=== PATIENT | female | born 1945 | race Caucasian/White ===

== ENCOUNTER 2018-02-15 09:11 | Inpatient (IN) | payer MEDICARE, BC ==
[~2018-02-15] VITALS: Ht 157.5 cm; Wt 110.2 kg
[2018-02-15] VITALS (9 sets, daily range): BP systolic 138–156; BP diastolic 67–107
[2018-02-15 09:57] LABS: ABSOLUTE BASOPHILS 0.1 thou/uL (0.0-0.2); ABSOLUTE EOSINOPHILS 0.3 thou/uL (0.0-0.7); ABSOLUTE LYMPHOCYTES 1.6 thou/uL (0.8-5.3); ABSOLUTE MONOCYTES 0.7 thou/uL (0.0-1.2); ABSOLUTE NEUTROPHILS 4.4 thou/uL (1.6-8.1); ANION GAP 10 mmol/L (7-16); BASOPHILS 0.7 %; BUN 24 mg/dL (7-18); CALCIUM 9.2 mg/dL (8.5-10.1); CHLORIDE 105 mmol/L (98-107); CO2 27 mmol/L (21-32); CREATININE 1.2 mg/dL (0.6-1.3); EOSINOPHILS 3.8 %; GLUCOSE 319 mg/dL (70-99); HEMATOCRIT 47.7 % (37.0-47.0); HEMOGLOBIN 15.7 gm/dL (12.0-15.0); LYMPHOCYTES 23.1 %; MCH 30.6 pg (26.0-34.0); MCV 92.7 fL (80.0-100.0); MPV 10.4 fl. (7.2-11.1); NUCLEATED RBCS 0 /100WBC; PLATELET COUNT* 200 thou/uL (150-400); POLYS 62.4 %; POTASSIUM 4.2 mmol/L (3.5-5.1); RBC 5.14 mil/uL (4.20-5.00); RDW-CV 14.3 % (10.5-14.5); SODIUM 142 mmol/L (136-145); WBC 7.1 thou/uL (4.0-11.0)
[2018-02-15 10:01] LABS: APTT 25.5 Seconds (25.0-31.3); INR 1.1; PROTIME 10.4 Seconds (9.20-11.50)
[2018-02-15 10:07] LABS: ALBUMIN 3.7 g/dL (3.4-5.0); ALKALINE PHOSPHATASE 76 U/L (46-116); LIPASE 180 U/L (73-393); NT-PRO BRAIN NAT PEPTIDE 1865 pg/mL (<300); SGOT 14 U/L (15-37); SGPT 28 U/L (30-65); TOTAL BILIRUBIN 0.9 mg/dL (<0.1-1.0); TOTAL PROTEIN 6.9 g/dL (6.4-8.2); TROPONIN-I LEVEL <0.06 ng/mL (<0.06)
[2018-02-15] MEDS ORDERED: ARIMIDEX PO (12:19)
[2018-02-15] MEDS ORDERED: LOTENSIN20 MG PO (12:19)
[2018-02-15] MEDS ORDERED: CALCIUM + D3 E1 EACH PO (12:20)
[2018-02-15] MEDS ORDERED: COLESTID1 GM PO (12:20)
[2018-02-15] MEDS ORDERED: ZOCOR20 MG PO (12:21)
[2018-02-15] MEDS ORDERED: EMPAGLIFLOZIN PO (12:21)
[2018-02-15] MEDS ORDERED: TOPROL XL100 MG PO (12:21)
[2018-02-15] MEDS ORDERED: AMARYL4 MG PO (12:21)
--- NOTE | 2018-02-15 16:04 | EKG ---
[place] [address] ELECTROCARDIOGRAM REPORT Name: ROBERT BUCHANAN Room: [address] IN [facility]#: [id number] Admission: 02/15/18 Attend Phys: Mónica Phan Discharge: Date of : 45 Report #: [id number] THIS REPORT FOR: //name// [facility] ED Test Date: 2018-02-15 Test Time: 09:20:03 Pat Name: ROBERT BUCHANAN Department: Room: Gender: Director Of Assessment: Ngoc FRANCIS : 1945 Requested By: Tiny Calvert Order Number: [id number] MD: David Olmedo Measurements Intervals [place] Rate: 138 P: DE: QRS: -45 QRSD: 131 T: 126 QT: 325 QTc: 493 Interpretive Statements Atrial fibrillation left axis Right bundle branch block LVH with IVCD and secondary repol abnrm Borderline prolonged QT interval No previous ECG available for comparison Electronically Signed On 02-15-2018 16:04:18 CDT by David Olmedo [email or web address] <ELECTRONICALLY SIGNED> By: David Olmedo MD, [facility] 02/15/18 1604 0920 0920 David Olmedo MD, [facility] /EPI
--- NOTE | 2018-02-15 16:05 | EKG ---
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: Ngoc FRANCIS : 1945 Requested By: Tiny Calvert Order Number: [id number] MD: David Olmedo Measurements Intervals [place] Rate: 124 P: -86 KS: 80 QRS: -47 QRSD: 132 T: 125 QT: 344 QTc: 494 Interpretive Statements atrial fibrillation RBBB left axis LVH with IVCD and secondary repol abnrm Borderline prolonged QT interval Electronically Signed On 02-15-2018 16:05:38 CDT by David Olmedo [email or web address] <ELECTRONICALLY SIGNED> By: David Olmedo MD, [facility] 02/15/18 1605 0955 0955 David Olmedo MD, [facility] /EPI
--- NOTE | 2018-02-15 16:29 | TEE ---
[place] [address] TRANSESOPHAGEAL ECHOCARDIOGRAM Name: RAMÓN BUCHANANE Katherine Room: [address] IN [facility]#: [id number] Admission: 02/15/18 Attend Phys: Carlos Eduardo Aleman Discharge: Date of : 45 Date of Service: 02/15/18 1629 Report #: [id number] THIS REPORT FOR: //name// APPROVED REPORT Study performed: 02/15/2018 15:39:07 EXAM: Transesophageal Echocardiogram BSA: 1.83 HR: 113 bpm BP: 96/44 mmHg Other Information Study Quality: Good Indications Atrial Fibrillation Echo Enhancing Agent Indication: Rule out Shunt Agent(s) / Amount(s) Used: Agitated Saline cc Procedure After obtaining informed consent, patient underwent transesophageal echo in the [employer] Orig[employer] Assistant [employer]. Type of Sedation : Conscious Sedation Sedation was administered by Christen Martinez RN. Sedation was achieved intravenously with: Versed (4) Fentanyl (75) Transesophageal probe was inserted and advanced into esophagus without difficulty by David Olmedo MD, FACC. Echo enhancement indication: R/O Septal defect. Echo enhancement agent administered: Agitated Saline The MARVIN was performed without complications. Synchronized Cardioversion attempted: Successful Synchronized Cardioversion acheived with 300 Joules after one attempt(s). Rhythm following Synchronized Cardioversion: Sinus Bradycardia Throughout the procedure, the blood pressure, pulse oximetry, cardiac rhythm, and rate were monitored. The patient tolerated the procedure without adverse effects. Recovery from conscious sedation was uneventful and vital signs were stable. Left Ventricle [place] [id number] TRANSESOPHAGEAL ECHOCARDIOGRAM Name: DEWAYNEROBERT Katherine Room: [address]#: [id number] Admission: 02/15/18 Attend Phys: Carlos Eduardo Aleman Discharge: Date of : 45 Date of Service: 02/15/18 1629 Report #: [id number] The left ventricle is normal size. There is normal LV segmental wall motion. There is normal left ventricular wall thickness. Left ventricular systolic function is normal. The left ventricular ejection fraction is within the normal range. LVEF is 55-60%. Right Ventricle The right ventricle is normal size. The right ventricular systolic function is normal. Atria Left atrium is mildly dilated. no thrombus noted in the left atrial appendage Injection of bubbles documented no interatrial shunt. The right atrium size is normal. Aortic Valve The aortic valve is normal in structure. No aortic regurgitation is present. There is no aortic valvular stenosis. Mitral Valve The mitral valve is normal in structure. Trace mitral regurgitation. No evidence of mitral valve stenosis. Tricuspid Valve The tricuspid valve is normal in structure. Trace tricuspid regurgitation. Pulmonic Valve The pulmonary valve is normal in structure. There is no pulmonic valvular regurgitation. Great Vessels The aortic root is normal in size. Pericardium There is no pericardial effusion. <Conclusion> LVEF is 55-60%. Left atrium is mildly dilated. no thrombus noted in the left atrial appendage Injection of bubbles documented no interatrial shunt. successful cardioversion of atrial fibrillation to sinus bradycardia <ELECTRONICALLY SIGNED> By: David Olmedo MD, FACC 02/15/18 1629 1629 1629 David Olmedo MD, FACC /INF
[2018-02-16 04:41] LABS: HEMATOCRIT 46.4 % (37.0-47.0); HEMOGLOBIN 15.7 gm/dL (12.0-15.0); MCH 31.1 pg (26.0-34.0); MCHC 33.8 g/dL (28.0-37.0); MCV 92.1 fL (80.0-100.0); MPV 10.4 fl. (7.2-11.1); RBC 5.04 mil/uL (4.20-5.00); RDW-CV 14.4 % (10.5-14.5); WBC 7.7 thou/uL (4.0-11.0)
[2018-02-16 04:46] VITALS: BP 150/97
[2018-02-16 05:17] LABS: ALBUMIN 3.5 g/dL (3.4-5.0); CALCIUM 9.2 mg/dL (8.5-10.1); CREATININE 0.9 mg/dL (0.6-1.3); POTASSIUM 4.1 mmol/L (3.5-5.1); TOTAL PROTEIN 6.6 g/dL (6.4-8.2)
[2018-02-16 07:44] VITALS: BP 157/94
--- NOTE | 2018-02-16 08:57 | CON ---
[facility] [address] [place] [address] CONSULTATION Name: ROBERT BUCHANAN Room: [address] IN .R.#: [id number] Admission: 02/15/18 Attend Phys: Mónica Phan Discharge: Date of : 45 Report #: [id number] THIS REPORT FOR: //name// CC: Jackie Aleman DATE OF SERVICE: 02/15/2018 TYPE OF REPORT: Cardiology consultation. PRIMARY CARE PHYSICIAN: Jackie Andres M.D. HISTORY OF PRESENT ILLNESS: The patient is a 73-year-old single white female who was admitted with atrial fibrillation. The patient has no previous history of heart disease. She apparently did have a stress test years ago. She notes she did go on a bus ride several weeks ago and since then has had some swelling of her ankles. She had a routine physical this morning. When she went to the office, she was found to be in atrial fibrillation. She was sent over to the Emergency Room and admitted for further evaluation and treatment. She is placed on IV Cardizem and the rate is slowed. She actually denied any recent chest pain, shortness of breath, feeling of an irregular heartbeat, lightheadedness and syncope. She does not exercise on a regular basis. She has had no recent fever or bleeding. PAST MEDICAL HISTORY: Otherwise significant for removal of a neuroma from her foot, meniscus repair of her knee and cholecystectomy. She had breast cancer years ago with mastectomy followed by radiation therapy. She has a history of hypertension, diabetes and hyperlipidemia. MEDICATIONS: Include metoprolol, glyburide, Jardiance and simvastatin. ALLERGIES: She has an allergy to SULFA DRUGS. FAMILY HISTORY: Her mother had congestive heart failure. SOCIAL HISTORY: She is , lives in [facility]. She is not working at this time. No smoking or alcohol abuse. REVIEW OF SYSTEMS: She has had no history of stroke, asthma, peptic ulcer disease, liver disease, kidney disease, psychiatric illness or chronic skin condition. PHYSICAL EXAMINATION: GENERAL: Revealed an elderly female who appeared in no distress. VITAL SIGNS: She had a blood pressure of 130/70, pulse is initially 140 [place] [address] CONSULTATION Name: ROBERT BUCHANAN Room: [address] IN [facility]#: [id number] Admission: 02/15/18 Attend Phys: Mónica Phan Discharge: Date of : 45 Report #: [id number] is now 100 and she was afebrile. HEENT: She is anicteric. Conjunctivae pink. Mucous membranes moist. NECK: Veins nondistended. No carotid bruits. Neck supple. CHEST: Clear to auscultation. CARDIOVASCULAR: Irregular rhythm. No significant murmur. ABDOMEN: Obese, soft and nontender. EXTREMITIES: Had trace pedal edema. Dorsalis pedis pulse cannot be palpated. SKIN: Cool and dry. NEUROLOGICAL: Nonfocal. LYMPHATIC: No adenopathy. MUSCULOSKELETAL: No joint effusion. RADIOLOGICAL DATA: Her ECG on admission this morning showed atrial fibrillation, rapid ventricular response rate, left ventricular hypertrophy, repolarization changes and left axis deviation. Workup in the Emergency Room today, she had portable chest x-ray that showed cardiomegaly and no pulmonary infiltrates. Venous duplex scan of her legs showed no DVT. VQ scan of her lungs was low probability for pulmonary embolus. LABORATORY DATA: Sodium 142, BUN 24, creatinine 1.2 and glucose is 319. Troponins 0.06. BNP . White blood cell count 7.1 and hemoglobin 15.7. IMPRESSION AND RECOMMENDATIONS: 1. Atrial fibrillation. Onset unclear. The patient was basically asymptomatic when she went to see her doctor today. I would recommend an echocardiogram to look for structural heart disease. I would check thyroid function studies. I would recommend anticoagulation. If patient fails to convert, I would consider cardioversion and antiarrhythmic therapy. 2. Hypertension. The patient has been on a beta bhargav. 3. Hyperlipidemia. The patient is on a statin drug. 4. Diabetes. 5. History of breast cancer. 6. Sleep apnea. The patient on continuous positive airway pressure. <ELECTRONICALLY SIGNED> By: David Olmedo MD, FACC 02/16/18 0857 1410 [id number] Olmedo MD, FACC /nt
--- NOTE | 2018-02-16 10:54 | EKG ---
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: : 1945 Requested By: David Olmedo Order Number: [id number] Dinah MD: David Olmedo Measurements Intervals [place] Rate: 63 P: 32 MS: 185 QRS: -40 QRSD: 139 T: 31 QT: 495 QTc: 507 Interpretive Statements Sinus rhythm early transition Nonspecific IVCD with LAD Left ventricular hypertrophy Compared to ECG 02/15/2018 09:55:31 Atrial fibrillation no longer present Electronically Signed On 02-16-2018 10:54:37 CDT by David Olmedo [email or web address] <ELECTRONICALLY SIGNED> By: David Olmedo MD, [facility] 02/16/18 1054 0805 08 David Olmedo MD, [facility] /EPI
[2018-02-16 11:35] VITALS: BP 158/80
[2018-02-16 16:25] VITALS: BP 124/103
[2018-02-16 20:00] VITALS: BP 144/85
[2018-02-16 23:42] VITALS: BP 151/92
[2018-02-17 04:36] VITALS: BP 117/77
[2018-02-17 04:50] LABS: HEMATOCRIT 48.5 % (37.0-47.0); HEMOGLOBIN 16.3 gm/dL (12.0-15.0); MCH 30.9 pg (26.0-34.0); MCHC 33.6 g/dL (28.0-37.0); MCV 91.8 fL (80.0-100.0); MPV 9.7 fl. (7.2-11.1); RBC 5.28 mil/uL (4.20-5.00); RDW-CV 14.5 % (10.5-14.5)
[2018-02-17 05:11] LABS: ALBUMIN 3.4 g/dL (3.4-5.0); CALCIUM 9.2 mg/dL (8.5-10.1); CREATININE 0.9 mg/dL (0.6-1.3); TOTAL BILIRUBIN 1.3 mg/dL (<0.1-1.0); TOTAL PROTEIN 6.6 g/dL (6.4-8.2)
[2018-02-17 07:53] VITALS: BP 117/77
[2018-02-17 08:00] VITALS: BP 149/78
--- NOTE | 2018-02-17 11:09 | EKG ---
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: Katherine FRAGOSO : 1945 Requested By: Carlos Eduardo Aleman Order Number: [id number] Dinah MD: David Olmedo Measurements Intervals [place] Rate: 133 P: ID: QRS: -45 QRSD: 131 T: 124 QT: 344 QTc: 512 Interpretive Statements Atrial fibrillation RBBB left axis LVH with IVCD and secondary repol abnrm Prolonged QT interval Compared to ECG 02/16/2018 08:05:23 Prolonged QT interval now present Sinus rhythm no longer present Electronically Signed On 02-17-2018 11:09:25 CDT by David Olmedo [email or web address] <ELECTRONICALLY SIGNED> By: David Olmedo MD, [facility] 02/17/18 1109 18 18 David Olmedo MD, [facility] /EPI
--- NOTE | 2018-02-17 11:15 | EKG ---
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 02/17/18 1114 822 2 David Olmedo MD, FACC /EPI
[2018-02-17 11:30] VITALS: BP 170/85
[2018-02-17] MEDS ORDERED: SORINE 80 MG TA80 M1 PO (12:50)
[2018-02-17] MEDS ORDERED: XARELTO20 MG PO (12:51)
[2018-02-17 12:59] VITALS: BP 117/77
== END 2018-02-17 13:09 | disposition home or self-care (01) | DRG 291 ==
LOC: M.ERS 09:11 → M.2W 10:51 → M.TBA-ER 10:51 → M.2W 13:24
PROVIDERS: Personal Emergency Response Attendant; ADMIT Internal Medicine
PROC: B24BZZ4 Ultrasonography of Heart with Aorta, Transesophageal (ICD-10-PCS; principal; 2018-02-15)
DX: I50.33 Acute on chronic diastolic (congestive) heart failure (principal); J96.00 Acute respiratory failure, unspecified whether with hypoxia or hypercapnia; Z68.41 Body mass index [BMI] 40.0-44.9, adult; I48.91 Unspecified atrial fibrillation; E78.00 Pure hypercholesterolemia, unspecified; I11.0 Hypertensive heart disease with heart failure; E11.65 Type 2 diabetes mellitus with hyperglycemia; E66.9 Obesity, unspecified; G47.33 Obstructive sleep apnea (adult) (pediatric); Z90.49 Acquired absence of other specified parts of digestive tract; Z85.3 Personal history of malignant neoplasm of breast; Z92.3 Personal history of irradiation; Z88.2 Allergy status to sulfonamides; Z82.49 Family history of ischemic heart disease and other diseases of the circulatory system

== ENCOUNTER 2018-02-27 22:06 | Inpatient (IN) | payer MEDICARE, BC ==
[~2018-02-27] VITALS: Ht 160 cm; Wt 105.2 kg
[~2018-02-27 22:06] MED LIST: AMARYL4 MG PO; ARIMIDEX PO; CALCIUM + D3 E1 EACH PO; COLESTID1 GM PO; EMPAGLIFLOZIN PO; LOTENSIN20 MG PO; SORINE 80 MG TA80 M1 PO; TOPROL XL100 MG PO; XARELTO20 MG PO; ZOCOR20 MG PO
[2018-02-27 22:09] VITALS: BP 157/111
[2018-02-27] MEDS ORDERED: JARDIANCE10 MG PO (22:20)
[2018-02-27 23:06] LABS: ABSOLUTE BASOPHILS 0.1 thou/uL (0.0-0.2); ABSOLUTE EOSINOPHILS 0.3 thou/uL (0.0-0.7); ABSOLUTE LYMPHOCYTES 1.4 thou/uL (0.8-5.3); ABSOLUTE MONOCYTES 1.2 thou/uL (0.0-1.2); ABSOLUTE NEUTROPHILS 11.1 thou/uL (1.6-8.1); BASOPHILS 0.7 %; EOSINOPHILS 2.3 %; HEMATOCRIT 52.2 % (37.0-47.0); HEMOGLOBIN 17.2 gm/dL (12.0-15.0); LYMPHOCYTES 10.2 %; MCH 30.1 pg (26.0-34.0); MCHC 32.9 g/dL (28.0-37.0); MCV 91.7 fL (80.0-100.0); MONOCYTES 8.4 %; NUCLEATED RBCS 0 /100WBC; PLATELET COUNT* 243 thou/uL (150-400); POLYS 78.4 %; RBC 5.69 mil/uL (4.20-5.00); RDW-CV 14.1 % (10.5-14.5); WBC 14.2 thou/uL (4.0-11.0)
[2018-02-27 23:14] LABS: APTT 36.4 Seconds (25.0-31.3); INR 1.3; PROTIME 12.8 Seconds (9.20-11.50)
[2018-02-27 23:28] LABS: ALBUMIN 3.7 g/dL (3.4-5.0); ALKALINE PHOSPHATASE 83 U/L (46-116); ANION GAP 9 mmol/L (7-16); CALCIUM 9.4 mg/dL (8.5-10.1); CHLORIDE 102 mmol/L (98-107); CO2 24 mmol/L (21-32); GLUCOSE 292 mg/dL (70-99); LIPASE 242 U/L (73-393); NT-PRO BRAIN NAT PEPTIDE 1799 pg/mL (<300); POTASSIUM 3.9 mmol/L (3.5-5.1); SGOT 14 U/L (15-37); SGPT 25 U/L (30-65); SODIUM 135 mmol/L (136-145); TOTAL BILIRUBIN 0.8 mg/dL (<0.1-1.0); TOTAL PROTEIN 7.3 g/dL (6.4-8.2); TROPONIN-I LEVEL <0.06 ng/mL (<0.06)
[2018-02-27 23:38] LABS: BUN 27 mg/dL (7-18)
[2018-02-28] VITALS (7 sets, daily range): BP systolic 115–146; BP diastolic 72–107
--- NOTE | 2018-02-28 05:38 | NUR ---
ASSUMED PT CARE AT 0100. PT IS A&OX4, TRACING AFIB ON THE MONTIOR, HEART RATE BETWEEN 90'S, TO 120'S. PRN MEDICATIONS GIVEN PER MAR. PT IS ON RA SATTING MID TO HIGH 90'S. PT IS UP AD MARBELLA IN HER ROOM. APPEARS STABLE ON HER FEET. PT HAS A RIGHT ARM LIMB ALERT. PT DENIES ANY PAIN OR NEEDS AT THIS TIME. BED IN LOW POSITION, CALL LIGHT IN REACH. HOURLY ROUNDING COMPLETED FOR PT SAFETY.
--- NOTE | 2018-02-28 11:08 | NUR ---
ASSUMED CARE OF PT AT 0730. PT RESTING IN CHAIR. PT A&0X4, DENIES ANY PAIN OR SHORTNESS OF BREATH. PT TRACING AFIB ON THE VBA DEVELOPER-RATE IN THE 110-130'S. PRN IVP CARDIZEM GIVEN. REFER TO EMAR. AWAITING CARDIOLOGY CONSULT AT THIS TIME. PT ASYMPTOMATIC WITH INCREASED HEART RATE. PT ON RA SAT 99%. PT UP AD MARBELLA IN ROOM. TROPONIN NEGATIVE X3. WILL AWAIT CARDIOLOGY. AM ASSESSMENT CHARTED. MEDICATIONS PER DEC. PT REPOSITIONS SELF. HOURLY ROUNDING OBSERVED. BED IN LOW POSITION. CALL LIGHT WITHIN REACH. WILL CONTINUE PLAN OF CARE.
--- NOTE | 2018-02-28 13:21 | EKG ---
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 : 1945 Requested By: Tiny Calvert Order Number: [id number] MD: Jose Abel Measurements Intervals [place] Rate: 135 P: 143 DE: 171 QRS: -47 QRSD: 128 T: 148 QT: 349 QTc: 524 Interpretive Statements afib IVCD, consider atypical RBBB LVH with IVCD and secondary repol abnrm Prolonged QT interval Compared to ECG 02/17/2018 08:23:48 Prolonged QT interval now present Atrial fibrillation no longer present Electronically Signed On 02-28-2018 13:21:38 CDT by Jose Abel [email or web address] <ELECTRONICALLY SIGNED> By: Jose Abel MD, FAC 02/28/18 1321 10 10 Jose Abel MD, FAC /EPI
--- NOTE | 2018-02-28 17:56 | NUR ---
NO ACUTE CHANGES THROUGHOUT SHIFT. REFER TO CHARTING. CARDIOLOGY HERE TO SEE PT. PT STARTED ON CARDIZEM 60 MG PO Q6H. PT TO HAVE STRESS TEST TOMORROW 03/01, NPO AFTER MIDNIGHT. PT DENIES ANY CHEST PAIN OR SHORTNESS OF BREATH. PT UP TO CHAIR THROUGHOUT SHIFT. PT UP AD MARBELLA IN ROOM. PT CONTINUES TO TRACE AFIB ON THE CONTOUR BAND SAW OPERATOR VERTICAL. RATE IN THE 110'S THIS AFTERNOON. ON RA SAT UPPER 90'S. MEDICATIONS PER DEC. HOME MEDICATIONS RESTARTED AND ADMINISTERED. PT REPOSITIONS SELF. HOURLY ROUNDING OBSERVED. BED IN LOW POSITION. CALL LIGHT WITHIN REACH. WILL CONTINUE PLAN OF CARE.
[2018-03-01] VITALS: BP 124/76
--- NOTE | 2018-03-01 03:26 | NUR ---
RECIEVED REPORT AT 1930. ASSESSMENT COMPLETED CHARTED. NO C/O PAIN. NPO AFTER MIDNIGHT FOR STRESS TEST IN THE MORNING. PT HAS BEEN RESTING IN BED ALL NIGHT, TIRED FROM YESTERDAYS EVENTS. IV IN LEFT WRIST SL. CARDIZEM PO SEEMS EFFECTIVE IN KEEPING HEART RATE BETWEEN 90 AND 120. WILL CONTINUE WITH PLAN OF CARE.
[2018-03-01 04:30] VITALS: BP 122/82
[2018-03-01 04:33] LABS: HEMATOCRIT 46.5 % (37.0-47.0); HEMOGLOBIN 15.6 gm/dL (12.0-15.0); MCH 30.7 pg (26.0-34.0); MCHC 33.5 g/dL (28.0-37.0); MCV 91.6 fL (80.0-100.0); MPV 10.1 fl. (7.2-11.1); RBC 5.07 mil/uL (4.20-5.00)
[2018-03-01 04:41] LABS: CALCIUM 8.9 mg/dL (8.5-10.1); CREATININE 0.8 mg/dL (0.6-1.3); POTASSIUM 3.8 mmol/L (3.5-5.1)
[2018-03-01 08:42] VITALS: BP 117/75
--- NOTE | 2018-03-01 11:34 | NUR ---
ASSUMED CARE OF PATIENT AFTER REPORT THIS MORNING. PATIENT AWAKE, ALERT, AND ORIENTED APPROPRIATELY. PHYSICAL ASSESSMENT COMPLETED AND CHARTED. NO COMPLAINTS OF PAIN AT THAT TIME. VITAL SIGNS STABLE. OXYGEN SATURATION WITHIN NORMAL LIMITS ON ROOM AIR. GIVEN SCHEDULED MEDICATIONS, SEE EMAR FOR DOCUMENTATION. PATIENT TRANSFERS AND AMBULATES WITH ASSISTANCE FROM STAFF. USES CALL LIGHT APPROPRIATELY. DENIES NEEDS AT THIS TIME. CALL LIGHT WITHIN REACH. NURSWING WILL CONTINUE TO MONITOR.
--- NOTE | 2018-03-01 12:00 | NUR ---
MET WITH PT TO DISCUSS HOME SITUATION/DC PLANNING. PT LIVES ALONE, IS INDEPENDENT AND ACTIVE. SHE WEARS CPAP AT NIGHT. DENIES ANY DC NEEDS. WILL FOLLOW
[2018-03-01 12:09] VITALS: BP 103/61
--- NOTE | 2018-03-01 17:26 | NUR ---
NO CHANGE IN PATIENT STATUS. REMAINS ALERT AND ORIENTED APPROPRIATELY. HAS BEEN UP AD MARBELLA IN ROOM WITHOUT DIFFICULTY. USES CALL LIGHT APPROPRIATELY. DENIES NEEDS AT THIS TIME. CALL LIGHT WITHIN REACH. NURSING WILL CONTINUE TO MONITOR.
[2018-03-01 20:00] VITALS: BP 135/89
[2018-03-02] VITALS (12 sets, daily range): BP systolic 101–154; BP diastolic 56–99
--- NOTE | 2018-03-02 03:09 | NUR ---
ASSUMED PT CARE AT 1930, PT IS TRACING AFIB ON THE MONITOR, ON RA SATTING MID TO HIGH 90'S. PT DENIES ANY PAIN OR NEEDS AT THIS TIME. PT IS NPO AT THIS TIME FOR PENDING STRESS TEST TODAY AND A POSSIBLE CARDIOVERSION. PT IS UP AD MARBELLA IN HER ROOM AND APPEARS STABLE ON HER FEET. BED IN LOW POSITION, CALL LIGHT IN REACH. HOURLY ROUNDING COMPLETED FOR PT SAFETY.
--- NOTE | 2018-03-02 14:57 | EKG ---
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1945 Requested By: David Olmedo Order Number: [id number] Reading MD: Siva Stevens Measurements Intervals [place] Rate: 130 P: [place]: QRS: -54 QRSD: 129 T: 137 QT: 359 QTc: 528 Interpretive Statements Atrial fibrillation with rapid ventricular response Right bundle branch block LVH with IVCD and secondary repol abnrm Prolonged QT interval Compared to ECG 02/27/2018 22:11:06 No significant changes Electronically Signed On 03-02-2018 14:57:12 CDT by Siva Stevens [email or web address] <ELECTRONICALLY SIGNED> By: Siva Stevens MD, [facility] 03/02/18 1457 0944 0944 Siva Stevens MD, [facility] /EPI
--- NOTE | 2018-03-02 15:04 | NUR ---
Nutrition: Pt seen for BMI 41.1. H/o DM, HTN, afib. Heart Healthy diet with CHO count. RD gave pt a menu and explained the ordering process. Pt stated she's had a fair appetite. She has had DM educ classes in past. No questions today. BG has been 200-300s here b/c pt doesn't have her RX with her. She stated at home that BG usually runs 180s. Albumin 3.7, Usual wt is 230#. Consider low risk at this time. GOALS: BG better controlled. Pt likely to discharge tomorrow morning.
--- NOTE | 2018-03-02 15:21 | CARDNUC ---
[place] [address] CARDIAC NUCLEAR IMAGING REPORT Name: ROBERT BUCHANAN Room: [address] IN [facility]#: [id number] Admission: 02/27/18 Attend Phys: Mitchell Ghosh Discharge: Date of : 45 Date of Service: 03/02/18 1520 Report #: [id number] THIS REPORT FOR: //name// APPROVED REPORT Study performed: 02/28/2018 11:35:00 Exam: Nuclear Stress Test Indication: Chest pain, Atrial Fibrillation Patient Location: In-Patient Room #: 227 Stress Tech: Elena Lee Stress Nurse: Janna Hahn RN Ht: 5 ft 3 in Wt: 239 lbs BSA: 2.09 m2 BMI: 42.33 Medical History Medical History: Diabetes, HTN, Hyperlipidemia, RBBB Medications: ivaroxaban, atorvastatin, colestipol, diltiazem, lisinopril, sotalol, digoxin Cardiac Risk Factors: Age, DM, FHX of CAD, HTN, Hyperlipidemia Meds Held (24 hrs): - Stress Test Details Stress Test: Pharmacologic stress testing performed using 0.4 mg of regadenoson per 5 mL given IV over 10 seconds. Reason for pharmacologic stress test: physical limitation. HR Resting HR: 109 bpm Max Heart Rate (APMHR): 147 bpm Max HR Achieved: 120 bpm Target HR (85% APMHR): 124 bpm % of APMHR: 81 Recovery HR: 115 bpm BP Resting BP: 110/88 mmHg Max BP: 115/83 mmHg ECG Resting ECG: atrial fibrillation, bifascicular block, nonspecific ST-T wave abnormalities Stress ECG: atrial fibrillation, bifascicular block, nonspecific [place] [address] CARDIAC NUCLEAR IMAGING REPORT Name: RAMÓN BUCHANANE Katherine Room: [address] IN [facility]#: [id number] Admission: 02/27/18 Attend Phys: Mitchell Ghosh Discharge: Date of : 45 Date of Service: 03/02/18 1520 Report #: [id number] Change: None Arrhythmia: None Recovery ECG: atrial fibrillation, bifascicular block, nonspecific ST-T wave abnormalities Recovery ST Change: None Recovery Arrhythmia: None Clinical Reason for Termination: Completed protocol Stress Symptoms: Headache, Nausea Exercise duration: 0 min sec Exercise capacity: 1.0 METs The patient has no significant chest discomfort with Lexiscan infusion. Nurse Comments 50mg aminophylline given IV for c/o headache and nausea at 0940. Patient states she feels much better 0945. Stress ECG Conclusion The baseline 12-lead electrocardiogram showed atrial fibrillation with a bifascicular (right bundle and left anterior fascicular block) with nonspecific ST-T wave abnormalities. EKGs obtained during and post Lexiscan infusion showed no significant ST or T wave changes when compared to baseline. There were no other significant stress-induced arrhythmias. NM EXAM: Myocardial Perfusion REST/STRESS Imaging Protocol: Rest Tc-99m/Stress Tc-99m 2 days Resting Data Rest SPECT myocardial perfusion imaging was performed in supine position 30 minutes following the intravenous injection of 40.2 mCi of Tc-99m Sestamibi. Time of rest injection: 1550 Date: 03/01/2018 The images were gated to evaluate regional wall motion and calculate left ventricular ejection fraction. Administration Route: IV Administration Site: Left Arm Pharmacologic Stress Pharmacologic stress test was performed by injecting Regadenoson 0.4 mg IV push followed by the intravenous injection of 40.6 mCi of Tc-99m Sestamibi. Time of stress injection: 929 Date: 03/02/2018 Administration Route: [place] [address] CARDIAC NUCLEAR IMAGING REPORT Name: ROBERT BUCHANAN Room: [address]#: [id number] Admission: 02/27/18 Attend Phys: Mitchell Ghosh Discharge: Date of : 45 Date of Service: 03/02/18 1520 Report #: [id number] Administration Site: Left Arm Heart Rate at time of stress injection: 120 bpm. Gated Stress SPECT was performed 40 minutes after stress injection. The images were gated to evaluate regional wall motion and calculate left ventricular ejection fraction. Prone imaging was performed. Study Quality Study: Good Artifact: No artifact Study Data At rest, the left ventricular ejection fraction was 75%.. Post stress, the left ventricular ejection was C3%.. TID = 1.05. Perfusion Normal left ventricular perfusion. Wall Motion Normal left ventricular wall motion. Nuclear Conclusion ECG Findings: non-diagnostic Clinical Findings: negative for ischemia Nuclear Findings: negative for ischemia Exercise Capacity: not assessed Left Ventricular Function: normal Risk Study: low Myocardial perfusion images show no defect to suggest infarct or ischemia. Left ventricular systolic function appears normal on gated studies. This is a low risk study. <Conclusion> The baseline 12-lead electrocardiogram showed atrial fibrillation with a bifascicular (right bundle and left anterior fascicular block) with nonspecific ST-T wave abnormalities. EKGs obtained during and post Lexiscan infusion showed no significant ST or T wave changes when compared to baseline. There were no other significant stress-induced arrhythmias. <ELECTRONICALLY SIGNED> By: Siva Stevens MD, FACC 03/02/18 1520 1520 1520 Siva Stevens MD, FACC /INF
--- NOTE | 2018-03-02 17:47 | NUR ---
ASSUMED CARE OF PATIENT AFTER REPORT THIS MORNING. PATIENT AWAKE, ALERT, AND ORIENTED APPROPRIATELY. PHYSICAL ASSESSMENT COMPLETED AND CHARTED. NO COMPLAINTS OF PAIN TODAY. VITAL SIGNS STABLE. OXYGEN SATURATION WITHIN NORMAL LIMITS ON ROOM AIR. GIVEN SCHEDULED MEDICATIONS LATE DUE TO STRESS TEST AND CARDIOVERSION THIS MORNING, SEE EMAR FOR DOCUMENTATION. PATIENT TRANSFERS AND AMBULATES INDEPENDENTLY IN ROOM WITHOUT DIFFICULTY. USES CALL LIGHT APPROPRIATELY. DENIES NEEDS AT THIS TIME. FAMILY IN ROOM. CALL LIGHT WITHIN REACH. NURSING WILL CONTINUE TO MONITOR.
[2018-03-03] VITALS: BP 145/89
--- NOTE | 2018-03-03 02:57 | NUR ---
RECIEVED REPORT AND TOOK PT INTO CARE AT 1930. ASSESSMENT COMPLETED CHARTED. A & O X 4, ABLE TO MAKE NEEDS KNOWN, UP AD MARBELLA, POSSIBLE D/C IN AM, NO C/O PAIN, PT CONTINUES TO HAVE A-FIB, HEART RATES IN THE 80-100S. WILL CONTINUE TO MONITOR.
[2018-03-03 04:00] VITALS: BP 141/67
[2018-03-03 08:00] VITALS: BP 126/72
--- NOTE | 2018-03-03 09:52 | NUR ---
ASSUMED PT CARE AT 0730, FULL ASSESMENT DONE CHARTED. PT A/O X4,DENIES PAIN, PT STATES SHE WANTS TO GO HOME. PTS HR IN THE 80-90'S, AFIB ON THE MONITOR. DR RODRÍGUEZ TO SEE PT. OK WITH DISCHARGE TODAY, MEDICATIONS ADJUSTED AND DISCUSSED WITH PT. WILL CONTINUE TO MONITOR.
[2018-03-03 11:29] VITALS: BP 131/68
[2018-03-03 11:45] VITALS: BP 125/71
[2018-03-03] MEDS ORDERED: DIGOXIN250 MCG PO (11:48)
[2018-03-03] MEDS ORDERED: CARDIZEM CD240 MG PO (12:00)
--- NOTE | 2018-03-08 08:44 | CARD ---
[address] [address] CARDIAC CATH REPORT Name: ROBERT BUCHANAN Room: [address] IN [facility]#: [id number] Admission: 02/27/18 Attend Phys: Mitchell Vásquez, Discharge: 03/03/18 Date of : 45 Report #: [id number] THIS REPORT FOR: //name// CC: David Olmedo MD [facility] Jackie Vásquez INDICATION: Persistent atrial flutter. PROCEDURE: DC cardioversion. PROCEDURE DESCRIPTION: After informed consent was obtained, the patient was brought to the cardiac catheterization holding area. The patient was given 4 mg of intravenous Versed, 50 mg of intravenous fentanyl and 5 mg of IV metoprolol during the procedure. The patient was given a 300 joule shock x 1 converting briefly into normal sinus rhythm and then resuming atrial flutter. After adequate sedation was assured again, the patient was then cardioverted with 360 joules to normal sinus rhythm again maintaining sinus rhythm only for a few seconds and reverting to atrial flutter. IMPRESSION: 1. Persistent atrial flutter. 2. Unsuccessful attempt at DC cardioversion as outlined above. <ELECTRONICALLY SIGNED> By: Siva Stevens MD, [facility] 03/08/18 0844 [id number] 26Michael Samia Stevens MD, FACC /nt
== END 2018-03-03 12:26 | disposition home or self-care (01) | DRG 309 ==
LOC: M.ERS 22:06 → M.TBA-ER 23:21 → M.2W 23:21
PROVIDERS: Nurse Practitioner Family; Personal Emergency Response Attendant; ADMIT Family Medicine
PROC: 5A2204Z Restoration of Cardiac Rhythm, Single (ICD-10-PCS; principal; 2018-03-02)
DX: I48.91 Unspecified atrial fibrillation (principal); J98.11 Atelectasis; I10 Essential (primary) hypertension; E11.9 Type 2 diabetes mellitus without complications; E78.00 Pure hypercholesterolemia, unspecified; H92.01 Otalgia, right ear; I48.92 Unspecified atrial flutter; G47.33 Obstructive sleep apnea (adult) (pediatric); E78.5 Hyperlipidemia, unspecified; I20.9 Angina pectoris, unspecified; Z79.01 Long term (current) use of anticoagulants; Z90.49 Acquired absence of other specified parts of digestive tract; Z85.3 Personal history of malignant neoplasm of breast; Z79.899 Other long term (current) drug therapy; Z88.2 Allergy status to sulfonamides; Z87.891 Personal history of nicotine dependence

== ENCOUNTER 2018-07-27 05:26 | Emergency (ER) | payer MEDICARE, BC ==
[~2018-07-27] VITALS: Ht 160 cm; Wt 94.3 kg
[~2018-07-27 05:26] MED LIST changes: +CARDIZEM CD240 MG PO; +DIGOXIN250 MCG PO; +JARDIANCE10 MG PO
[2018-07-27] MEDS ORDERED: LOPRESSOR50 MG PO (05:41)
[2018-07-27 06:27] VITALS: BP 157/76
== END 2018-07-27 06:15 | disposition home or self-care (01) ==
LOC: M.ERS 05:26
DX: R04.0 Epistaxis (principal); I10 Essential (primary) hypertension; E11.9 Type 2 diabetes mellitus without complications; E78.00 Pure hypercholesterolemia, unspecified; I48.91 Unspecified atrial fibrillation; M54.30 Sciatica, unspecified side; G47.30 Sleep apnea, unspecified; Z90.49 Acquired absence of other specified parts of digestive tract; Z85.3 Personal history of malignant neoplasm of breast; Z88.2 Allergy status to sulfonamides

== ENCOUNTER → 2018-08-17 | Outpatient (CLI) | payer MEDICARE, BC ==
[~2018-08-17] MED LIST changes: +LOPRESSOR50 MG PO
[2018-08-17 09:02] LABS: CREATININE 0.9 mg/dL (0.6-1.3)
== END ==
LOC: M.CT 08:32
PROVIDERS: Registered Nurse Diabetes Educator
DX: K57.30 Diverticulosis of large intestine without perforation or abscess without bleeding (principal); N28.1 Cyst of kidney, acquired; R10.32 Left lower quadrant pain; M47.896 Other spondylosis, lumbar region; Z90.49 Acquired absence of other specified parts of digestive tract